=== PATIENT | male | born 1985 ===

== ENCOUNTER 2017-05-22 10:35 | Emergency (ER) | payer OTHER ==
[2017-05-22 10:47] VITALS: RESP 18; O2SAT 98
[2017-05-22] MEDS ORDERED: Tetanus/Diphtheria Toxoids 0.5 ml Syringe IM ONE (11:09)
[2017-05-22] MEDS ORDERED: Lidocaine 1% Inj (20ml) INFIL STA (11:10)
[2017-05-22] MEDS ORDERED: Tmp-Smz 800 mg-160 mg DS Tab PO STA (11:10)
--- NOTE | 2017-05-22 11:15 | C.PDOC ---
History Of Present Illness Patient brought to ED for evaluation of left third digit injury sustained while at work. Patient states he was working between two pieces of wood that closed/ crusched on his digit, causing laceration. Patient unsure of tetanus vaccination status. He denies any other injuries. Time Seen by Provider: 05/22/17 10:54 Chief Complaint (Nursing): Finger,Hand,&Wrist History Per: Patient History/Exam Limitations: no limitations Onset/Duration Of Symptoms: Mins Current Symptoms Are (Timing): Still Present Quality: "Pain" Severity: Moderate Past Medical History Reviewed: Historical Data, Nursing Documentation, Vital Signs Vital Signs: Last Vital Signs Temp 98.2 F 05/22/17 12:38 Pulse 72 05/22/17 12:38 Resp 18 05/22/17 12:38 BP 128/72 05/22/17 12:38 Pulse Ox 98 05/22/17 13:58 - Medical History PMH: No Chronic Diseases Family History: States: No Known Family Hx - Social History Hx Alcohol Use: No Hx Substance Use: No - Immunization History Hx Tetanus Toxoid Vaccination: No Hx Influenza Vaccination: No Hx Pneumococcal Vaccination: No Review Of Systems Except As Marked, All Systems Reviewed And Found Negative. Constitutional: Negative for: Fever Cardiovascular: Negative for: Chest Pain Respiratory: Negative for: Shortness of Breath Gastrointestinal: Negative for: Abdominal Pain Musculoskeletal: Positive for: Other (left 3rd digit injury/laceration) Neurological: Negative for: Weakness, Numbness Physical Exam - Physical Exam Appears: Well, Non-toxic, No Acute Distress Skin: Other (see extremity exam) Head: Atraumatic, Normacephalic Oral Mucosa: Moist Cardiovascular: Rhythm Regular Respiratory: Normal Breath Sounds, No Rales, No Rhonchi, No Wheezing Extremity: Tenderness (distal 3rd digit ), Capillary Refill (< 2 sec all digits ), No Deformity, Swelling (mild), Other (left dital third digit laceration, approx 2.5 cm in length and irregular in shape, primarily at palmar aspect, sparing the nail bed) Neurological/Psych: Oriented x3, Normal Sensation (sensation intact at left third digit/hand ) ED Course And Treatment O2 Sat by Pulse Oximetry: 98 (RA) Pulse Ox Interpretation: Normal - Other Rad X-Ray - Left Hand X-Ray: Interpreted by Me, Viewed By Me (fracture distal phalanx (3rd)) Progress Note: Xray of digit ordered and reviewed. Patient given PO tylenol, PO antibiotics and tetanus vaccination IM. 11:40am- Call placed to Dr. Hernandez to discuss open fx 3rd digit - pending call back. 11:50am- Dr. Hernandez recommends loose sutures, aluminum splint, Augmentin/Bactrim and follow up in his office within 1 week. Patient and employer at bedside made aware of need to open worker's comp case prior to going to Dr. Hernandez. Suture repair done by me, and area dressed with bacitracin + nonocclusive gauze , finger splint and Kerlex. Patient tolerated well. Rxs given for Bactri, Augmentin, Tylenol, Tylenol #3. Patient instructed to follow up with Dr. Hernandez within 1 week without fail, and he understands he should return to ED immediately if he has any concerning symptoms such as fever, drainage, worsening pain/swelling/redness. Reevaluation Time: 12:20 Reassessment Condition: Improved Laceration - Laceration Repair left 3rd digit Wound Length (In cm): 2.5cm Description Of Wound: Irregular Wound Cleansed With: Sterile Saline Anesthesia: Lidocaine 1% (digital block - approx 4ml ) Wound Examination: Irrigated With Saline, No FB With Wound Exploration, No Tendon Injury With Wound Exploration Wound Closure: Suture Suture Technique And Material Used: Interrupted, Nylon Wound Complexity: Simple (5 loose ethilon 3.0 sutures placed) Disposition Counseled Patient/Family Regarding: Diagnosis, Need For Followup, Rx Given - Disposition Referrals: Bahman Hernandez MD [Staff Provider] - [facility] [Outside] Disposition: HOME/ ROUTINE Disposition Time: 12:20 Condition: STABLE Additional Instructions: FOLLOW UP WITH DR HERNANDEZ WITHIN 1 WEEK USE MEDICATIONS NEEDED FOR PAIN TAKE ANTIBIOITICS UNTIL FINISHED RETURN TO EMERGENCY ROOM IF YOUR SYMPTOMS WORSEN SEGUIMIENTO CON DR HERNANDEZ DENTRO DE 1 SEMANA USE LOS MEDICAMENTOS QUE TULIO NECESARIOS PARA EL DOLOR AILEEN ANTIBITICOS HASTA QUE TERMINEN VUELVA A LA HIREN DE EMERGENCIA SI DON SNTOMAS EMPEORARAN Prescriptions: Acetaminophen [Tylenol 325mg tab] 650 mg PO Q6 PRN #30 tab PRN Reason: pain/fever Acetaminophen with Codeine [Tylenol with Codeine #3 Tablet] 1 each PO Q6 PRN # 15 tablet PRN Reason: pain Amoxicillin/Clavulanate [Augmentin 875 MG-125 MG] 1 tab PO BID #14 tab Sulfamethoxazole/Trimethoprim [Bactrim DS 800 mg-160 mg] 1 tab PO BID #14 tab Instructions: Finger Fracture (ED), Finger Laceration (ED) Forms: ffk environment Connect (Greek), Work Excuse Print Language: KYRGYZ - POA Present On Arrival: Falls Or Trauma - Clinical Impression Clinical Impression: Open fracture of tuft of distal phalanx of finger, Finger laceration
[2017-05-22] MEDS ORDERED: Tmp-Smz 800 mg-160 mg DS Tab ONE (11:22)
[2017-05-22] MEDS ORDERED: Lidocaine 1% Inj (20ml) ONE (11:22)
[2017-05-22] MEDS ORDERED: Bacitracin 500 Units/gm Oint Foilpak UD TOP ONE (12:01)
[2017-05-22] MEDS ORDERED: Bacitracin 500 Units/gm Oint Foilpak UD ONE (12:03)
[2017-05-22 12:41] VITALS: BP 128/72; PULSE 72; TEMP 98.2
--- NOTE | 2017-05-22 13:10 | RAD ---
PROCEDURE: Left middle finger radiographs. HISTORY: laceration, r/o laceration COMPARISON: None. TECHNIQUE: AP radiograph of the left hand, as well as spot oblique and lateral images of left middle finger were obtained. FINDINGS: LEFT MIDDLE FINGER: There is a comminuted fracture distal tuft distal phalanx 3rd finger with surrounding soft tissue swelling and suspected palmar surface laceration. JOINTS: Joint spaces preserved. SOFT TISSUES: As above. No radiopaque foreign body seen. OTHER FINDINGS: None. IMPRESSION: Comminuted fracture distal tuft distal phalanx 3rd finger with surrounding soft tissue swelling and suspected the palm are surface laceration.
== END 2017-05-22 12:42 | disposition home or self-care (01) ==
LOC: C.ER 10:35
DX: S62.633B Displaced fracture of distal phalanx of left middle finger, initial encounter for open fracture (principal); W23.0XXA Caught, crushed, jammed, or pinched between moving objects, initial encounter; Y92.89 Other specified places as the place of occurrence of the external cause; Y99.0 Civilian activity done for income or pay